=== PATIENT | male | born 1995 | race Caucasian/White ===

== ENCOUNTER 2016-12-21 22:26 | Inpatient (IN) | payer OTHER, BC ==
[2016-12-21 22:25] VITALS: O2SAT 100
[2016-12-21] MEDS ORDERED: PROPOFOL 1000 MG/100 ML INJ 100 ML ONE (22:31)
[2016-12-21] MEDS: SODIUM CHLOR 0.9% 1000 ML INJ 1,000 ML IV SCH (22:50)
[2016-12-21] MEDS ORDERED: IOHEXOL 350 MG/ML 10 ML VIAL (for RAD DIAG) IV ONE ×2 (22:55→22:56)
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
[2016-12-21] MEDS ORDERED: Post-op Orders (for Pharmacy) MISC XX ONE (23:00)
[2016-12-21] MEDS ORDERED: NALOXONE HCL 0.4 MG/ML AMP IV PRN (23:00)
[2016-12-21] MEDS ORDERED: PANTOPRAZOLE SODIUM 40 MG VIAL IV SCH (23:00)
[2016-12-21] MEDS ORDERED: SODIUM CHLORIDE 0.9% FLUSH 5 ML FLUSH IVF PRN (23:00)
[2016-12-21] MEDS ORDERED: ONDANSETRON HCL 4 MG/2 ML VIAL IV PRN (23:00)
[2016-12-21] MEDS ORDERED: PROPOFOL 1000 MG/100 ML INJ 100 ML IV SCH (23:00)
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
[2016-12-21 23:01] LABS: I-STAT POTASSIUM 3.8 MMOL/L (3.5-4.9)
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
[2016-12-21 23:04] LABS: AUTOMATED NEUTROPHIL # 16.4 TH/MM3 (1.8-7.7); BASOPHIL # 0.1 TH/MM3 (0-0.2); BASOPHIL % 0.3 % (0.0-2.0); EOSINOPHIL % 0.2 % (0.0-4.0); HEMATOCRIT 52.1 % (39.0-51.0); HEMO FLAGS DIFF FINAL; LYMPH % 15.2 % (9.0-44.0); LYMPHOCYTE # 3.1 TH/MM3 (1.0-4.8); MEAN CELL VOLUME 86.7 FL (80.0-100.0); MEAN CORPUSCULAR HEMOGLOBIN 29.8 PG (27.0-34.0); MEAN CORPUSCULAR HGB CONC 34.3 % (32.0-36.0); MONO % 4.6 % (0.0-8.0); NEUT % 79.7 % (16.0-70.0); PLATELET COUNT 383 TH/MM3 (150-450); RED BLOOD COUNT 6.01 MIL/MM3 (4.50-5.90); RED CELL DISTRIBUTION WIDTH 14.5 % (11.6-17.2); WHITE BLOOD COUNT 20.5 TH/MM3 (4.0-11.0)
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
[2016-12-21 23:14] LABS: APTT (PATIENT) 24.1 SEC (24.3-30.1); INTERNATIONAL NORMALIZED RATIO 1.1 RATIO; PROTHROMBIN TIME - PATIENT 11.8 SEC (9.8-11.6)
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
[2016-12-21 23:20] VITALS: PULSE 97; O2SAT 100
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
[2016-12-22] VITALS (15 sets, daily range): PULSE 88–123; O2SAT 97–100
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
[2016-12-22] MEDS ORDERED: POTASSIUM CHLOR 20 MEQ PREMIX 100 ML IV PRN ×2 (00:45)
[2016-12-22] MEDS ORDERED: MAGNESIUM SULFATE INJ 4 GM in SODIUM CHLORIDE 0.9% INJ 92 ML IV PRN (00:45)
[2016-12-22] MEDS ORDERED: POTASSIUM PHOSPHATE MONOBASIC 500 MG TAB PO PRN (00:45)
[2016-12-22] MEDS ORDERED: SODIUM PHOSPHATE INJ 30 MMOL in SODIUM CHLOR 0.9% 250 ML INJ 240 ML IV PRN (00:45)
[2016-12-22] MEDS ORDERED: MAGNESIUM OXIDE 400 MG TAB PO PRN (00:45)
[2016-12-22] MEDS ORDERED: POTASSIUM CHLOR 40 MEQ PREMIX 100 ML IV PRN ×2 (00:45)
[2016-12-22] MEDS ORDERED: POTASSIUM PHOSPHATE MONOBASIC 500 MG TAB PO/TUBE PRN (00:45)
[2016-12-22] MEDS ORDERED: POTASSIUM PHOSPHATE INJ 30 MMOL in SODIUM CHLOR 0.9% 250 ML INJ 250 ML IV PRN (00:45)
[2016-12-22] MEDS ORDERED: MAGNESIUM SULFATE INJ 2 GM in SODIUM CHLORIDE 0.9% INJ 96 ML IV PRN (00:45)
[2016-12-22] MEDS: NEOMYCIN/POLYMYXIN/BACITRACIN OINT 15 GM TUBE TOPICAL SCH ×2 (01:00→08:27)
[2016-12-22 01:02] LABS: BLOOD GAS BASE EXCESS -7.8 mmol/L (-2-2); BLOOD GAS CARBOXYHEMOGLOBIN 0.6 % (0-4); BLOOD GAS HCO3 17 mmol/L (22-26); BLOOD GAS METHEMOGLOBIN 0.9 % (0-2); BLOOD GAS O2 HGB SATURATION 98 % (90-100); BLOOD GAS OXYGEN CONTENT 24.3 Vol % (12.0-20.0); BLOOD GAS PCO2 35 mmHg (38-42); BLOOD GAS PO2 300 mmHg (61-120); BLOOD GAS TOTAL HGB 17.1 G/DL (12.0-16.0); CRITICAL VALUE YES; DRAW SITE LT BRACHIAL; NUMBER OF ARTERIAL PUNCTURES 1
[2016-12-22 01:03] LABS: STAT NO; TEMP CORR TO 98.6
[2016-12-22] MEDS ORDERED: LORazepam 2 MG/ML VIAL IV ONE (02:45)
[2016-12-22] MEDS: PROPOFOL 1000 MG/100 ML INJ 100 ML IV SCH ×2 (04:06→06:19)
[2016-12-22 04:14] LABS: AUTOMATED NEUTROPHIL # 13.5 TH/MM3 (1.8-7.7); BASOPHIL % 0.1 % (0.0-2.0); HEMATOCRIT 49.1 % (39.0-51.0); HEMO FLAGS DIFF FINAL; LYMPH % 9.6 % (9.0-44.0); LYMPHOCYTE # 1.6 TH/MM3 (1.0-4.8); MEAN CELL VOLUME 87.6 FL (80.0-100.0); MEAN CORPUSCULAR HEMOGLOBIN 30.2 PG (27.0-34.0); MEAN CORPUSCULAR HGB CONC 34.5 % (32.0-36.0); MONO % 10.2 % (0.0-8.0); NEUT % 80.1 % (16.0-70.0); PLATELET COUNT 281 TH/MM3 (150-450); RED CELL DISTRIBUTION WIDTH 14.4 % (11.6-17.2); WHITE BLOOD COUNT 16.9 TH/MM3 (4.0-11.0)
[2016-12-22 04:47] LABS: BICARBONATE 21.7 MEQ/L (21.0-32.0); POTASSIUM 3.3 MEQ/L (3.5-5.1)
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
[2016-12-22] MEDS ORDERED: ACETAMINOPHEN 325 MG TAB PO PRN (06:45)
[2016-12-22] MEDS ORDERED: CHLORHEXIDINE 0.12% (ORAL KIT) 15 ML CUP MT SCH ×2 (08:00)
[2016-12-22] MEDS: SODIUM CHLOR 0.9% 1000 ML INJ 1,000 ML IV SCH (08:28)
[2016-12-22 08:34] LABS: BLOOD GAS BASE EXCESS -4.9 mmol/L (-2-2); BLOOD GAS HCO3 19 mmol/L (22-26); BLOOD GAS METHEMOGLOBIN 0.9 % (0-2); BLOOD GAS O2 HGB SATURATION 97 % (90-100); BLOOD GAS OXYGEN CONTENT 23.5 Vol % (12.0-20.0); BLOOD GAS PCO2 30 mmHg (38-42); BLOOD GAS PO2 145 mmHg (61-120); BLOOD GAS TOTAL HGB 17.1 G/DL (12.0-16.0); CRITICAL VALUE NO; DRAW SITE LT RADIAL; FIO2 30 %; NUMBER OF ARTERIAL PUNCTURES 2; OXYGEN DEVICE VENTILATOR; STAT NO; TEMP CORR TO 98.6; ULNAR PULSE PRESENT; VENT SETTINGS PRVC14/500/1.0/PEEP5
[2016-12-22] MEDS ORDERED: LACTULOSE SYRUP 20 GM/30 ML CUP PO SCH (09:00)
[2016-12-22] MEDS ORDERED: DOCUSATE SODIUM 50 MG/SENNA 8.6 MG TAB PO SCH (09:00)
[2016-12-22] MEDS ORDERED: SODIUM CHLORIDE 0.9% FLUSH 5 ML FLUSH IVF SCH (09:00)
[2016-12-22] MEDS: METHOCARBAMOL 500 MG TAB PO SCH ×2 (09:08→14:23)
[2016-12-22] MEDS: oxyCODONE/ACETAMINOPHEN 5 MG/325 MG TAB PO PRN ×3 (10:30→18:45)
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
[2016-12-22] MEDS ORDERED: METH500T3 PO (15:12)
[2016-12-23] MEDS ORDERED: PANTOPRAZOLE SOD 40 MG DELAYED RELEASE TAB PO SCH (09:00)
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
== END 2016-12-22 19:12 | disposition home or self-care (01) | DRG 564 ==
LOC: NEPI 22:26 → NEDA 22:46 → EDBD 22:46 → N03B 23:57
PROVIDERS: ADMIT Surgery; ATTEND Surgery
DX: S42.113 Displaced fracture of body of scapula, unspecified shoulder (principal); J96.00 Acute respiratory failure, unspecified whether with hypoxia or hypercapnia; S27.322A Contusion of lung, bilateral, initial encounter; S22.42XA Multiple fractures of ribs, left side, initial encounter for closed fracture; D72.829 Elevated white blood cell count, unspecified; S52.91XA Unspecified fracture of right forearm, initial encounter for closed fracture; K76.89 Other specified diseases of liver; S60.211A Contusion of right wrist, initial encounter; F10.129 Alcohol abuse with intoxication, unspecified; D18.03 Hemangioma of intra-abdominal structures; E86.0 Dehydration; V43.52XA Car driver injured in collision with other type car in traffic accident, initial encounter; Y92.9 Unspecified place or not applicable
CPT/HCPCS: 31500; 36600; 70450; 71010; 71260; 72125; 72170; 73110; 73590; 74177; 80048; 80307; 82435; 82565; 82805; 82947; 84132; 84295; 84520; 85025; 85610; 85730; 86850; 86900; 86901; 87641; 94002; 94003; 94150; 99291; A0431-QM-SH; A0436-QM-SH; C9113; G0390; J2060; J3480; J7030; L0150; Q9967